=== PATIENT | male | born 2000 | race Caucasian/White ===

== ENCOUNTER 2023-09-27 19:52 | Emergency (ER) | payer BC, SELFPAY ==
[2023-09-27 19:58] VITALS: BP 138/83
[2023-09-27 21:54] VITALS: BMI 29.3
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
[2023-09-27 23:23] VITALS: BP 122/89
[2023-09-27] MEDS: ADACEL 0.5 ML IM (23:49)
== END 2023-09-27 23:54 | disposition home or self-care (01) ==
LOC: EMR 19:52
PROVIDERS: EMERGENCY PHYSICIAN Student in an Organized Health Care Education/Training Program; FAMILY PHYSICIAN Family Medicine
DX: T20.29XA Burn of second degree of multiple sites of head, face, and neck, initial encounter (principal); X04.XXXA Exposure to ignition of highly flammable material, initial encounter; Z23 Encounter for immunization
CPT/HCPCS: 99282; 90471; 90715

== ENCOUNTER → 2024-07-03 12:50 | Outpatient (REF) | payer BC, SELFPAY | LOC: HWRAD 12:50 | PROVIDERS: ATTENDING PHYSICIAN Family Medicine | DX: M25.511 Pain in right shoulder (principal) | CPT/HCPCS: 73000; 73030 ==